=== PATIENT | male | born 1945 | race Caucasian/White ===

== ENCOUNTER → 2021-03-12 | Day surgery (SDC) | payer MEDICARE ==
[~2021-03-12] VITALS: Ht 172.7 cm; Wt 99.8 kg
[~2021-03-12] MED LIST: HYDROCHLOROTH12.5 M2 PO; KEYTRUDA100 MG/4 M IV; LOVAZA1 GM PO; PRINIVIL20 MG PO; SYNTHROID75 MCG PO
== END | disposition home or self-care (01) ==
LOC: FAS 08:22
DX: D12.0 Benign neoplasm of cecum (principal); D12.4 Benign neoplasm of descending colon; K52.9 Noninfective gastroenteritis and colitis, unspecified; K57.30 Diverticulosis of large intestine without perforation or abscess without bleeding; K91.840 Postprocedural hemorrhage of a digestive system organ or structure following a digestive system procedure; C34.90 Malignant neoplasm of unspecified part of unspecified bronchus or lung; M19.90 Unspecified osteoarthritis, unspecified site; I10 Essential (primary) hypertension; F43.10 Post-traumatic stress disorder, unspecified; G47.30 Sleep apnea, unspecified; Z88.8 Allergy status to other drugs, medicaments and biological substances; Z79.899 Other long term (current) drug therapy
CPT/HCPCS: 88305; J1610; J2250; J2704; J7120